=== PATIENT | female | born 1990 | race Caucasian/White ===

== ENCOUNTER 2017-04-05 13:52 | Emergency (ER) | payer OTHER ==
[2017-04-05 13:59] VITALS: BP 108/57; BMI 27.4
[2017-04-05] MEDS ORDERED: MOTRIN TAB 800 MG PO PRN (14:05)
[2017-04-05] MEDS ORDERED: MOTRIN TAB 800 MG PO ONE (14:07)
[2017-04-05 14:30] LABS: BILIRUBIN,URINE NEGATIVE (NEGATIVE); BLOOD/HEMOGLOBIN,URINE 5+ (NEGATIVE); GLUCOSE, URINE NEGATIVE (NEGATIVE); KETONES,URINE 1+ (NEGATIVE); LEUKOCYTE ESTERASE ,URINE 3+ (NEGATIVE); NITRITES,URINE POSITIVE (NEGATIVE); PROTEIN,URINE 3+ (NEGATIVE); UROBILINOGEN,URINE 2+ (NORMAL)
[2017-04-05 14:34] LABS: APPEARANCE,URINE CLOUDY (CLEAR); BACTERIA,URINE 3+ /HPF (NEGATIVE); COLOR,URINE YELLOW (YELLOW); RBC,URINE 20-25 /HPF (NEGATIVE); SQUAMOUS EPITHELIAL CELL,UR RARE /HPF (NEGATIVE)
[2017-04-05] MEDS ORDERED: ROCEPHIN 1 GM IV PREMIX 1 GM/50 ML IV.SOLN. IV ONE ×2 (16:22→16:42)
[2017-04-05] MEDS ORDERED: ZOFRAN INJ 4 MG VIAL IVP ONE (16:23)
--- NOTE | 2017-04-05 16:27 | DR.GENAD ---
HPI - PCP Primary Care Physician: BEKAH - Complaint/Symptoms Chief Complaint Doctors Comments: Patient is complaining of low back pain, headache, nausea, vomiting for the past 24 hours getting worst. States she has had several urinary tract infections in the past. States she is a patient of Dr. Godfrey. States she has been having back pain worst when she moves. She denies diarrhea, hematuria or melana. States she has been taking motrin without improvement. She denies any recent trauma. Chief Complaint:: PT C/O HAVING LOWER BACK PAIN THAT STARTED X 3 DAYS AGO. PT STATES SHE HAS A HISTORY OF FREQUENT UTI'S. PT STATES X2 DAYS AGO SHE STARTED WITH FEVER AND STARTED VOMITTING THAT NIGHT. PT STATES SHE HAS BEEN TAKING MOTRIN AND TYLENOL AROUND THE CLOCK FOR THE FEVER. LAS DOSE OF TYLENOL WAS AT 10 AM SHE IS IN NEED OF A DOSE OF MOTRIN NOW. - Nurses notes reviewed Nurses Notes Review: Yes - Source History Provided: Patient - Mode of Arrival Mode of Arrival: Ambulatory - Timing Onset of Chief Complaint: 04/02/17 Came on: Gradually - Duration Duration: Constant How lon Duration: Hours - Location Location: lower back and abdominal pain - Severity Severity: Severe - Modifying Factors Worsens:: nothing Improves:: nothing PMH - PMH Past Medical History: Yes Past Medical History Comment: ENDOMETRIOSIS, OVARIAN CYST, CHRONIC KIDNEY PROBLEMS Past Surgical History: Yes Surgical History: Appendectomy, Other - Family History History of Family Medical Conditions: Yes Family Medical History: Diabetes Mellitus - Social History Does any household member use tobacco: No Alcohol Use: None Do you use any recreational Drugs:: No Lives With: Family Lives Where: Home - infectious screening In the last 2 months have you had wt loss of >10#?: NO Have you had fever, night sweats or hemotysis?: No Have you traveled outside the country in the last 6 months?: No Isolation: Standard ROS - Review of Systems Constitutional: No Symptoms Reported, Fever, Weakness, Loss of Appetite Eyes: No Symptoms Reported ENTM: No Symptoms Reported, Nose Congestion Respiratoy: No Symptoms Reported Cardiovascular: No Symptoms Reported Gastrointestinal/Abdominal: No Symptoms Reported, Abdominal Pain, Nausea, Vomiting Genitourinary: No Symptoms Reported, Dysuria, Frequency, Pain Neurological: No Symptoms Reported Musculoskeletal: No Symptoms Reported, Back Pain Integumentary: No Symptoms Reported Hematologic/Lymphatic: No Symptoms Reported Endocrine: No Symptoms Reported Psychiatric: No Symptoms Reported. negative: See HPI, Anxiety, Depression, Hallucinations, Excessive crying, Suicidal, Other PE - Vital Signs Vitals: Temperature 99.7 F Pulse Rate 142 Respiratory Rate 20 Blood Pressure [Right Arm] 120/68 Blood Pressure 108/57 O2 Sat by Pulse Oximetry 95 - General Limitations: No Limitations General Appearance: Alert - Head Head Exam: Normal Inspection, Atraumatic, Normocephalic - Eyes Eye exam: Normal Appearance, PERRL. negative: EOMI, Scleral Icterus, Conjunctival Injection, Nystagmus, Miosis, Mydrasis, Periorbital Swelling, Periorbital Tenderness, Other - ENT ENT Exam: Normal Exam, Normal Oropharynx, Normal External Ear Exam, Mucous Membranes Moist, TM's Normal Bilaterally External Ear Exam: Normal External Inspection TM/Canal Exam: Bilateral Normal Nose Exam: Normal Nose Exam Mouth Exam: Normal Inspection Throat Exam: Normal Inspection - Neck Neck Exam: Normal Inspection, Full ROM, Trachea Midline - Chest Chest Inspection: Normal Inspection, Symmetric Chest Wall Rise - Respiratory Respiratory Exam: Normal Lung Sounds Bilat Respiratory Exam: Bilateral Clear to Auscultation - Cardiovascular Cardiovascular Exam: Regular Rate, Normal Rhythm, Normal Heart Sounds - Abdominal Exam Abdominal Exam: Normal Inspection, Normal Bowel Sounds, Soft, Tenderness Abdominal Tenderness: LUQ, Epigastrium, Suprapubic, Moderate - Extremities Extremities Exam: Normal Inspection, Full ROM, Normal Capillary Refill. negative: Tenderness, Edema, Joint Swelling, Calf Tenderness, Other - Back Back Exam: Normal Inspection, Full ROM, Tenderness, (L) CVA Tenderness - Neurologic Neurological Exam: Alert, Oriented X3, CN II-XII Intact, Normal Gait, Reflexes Normal - Psychiatric Psychiatric Exam: Normal Affect, Normal Mood - Skin Skin Exam: Warm, Dry, Intact, Normal Color Course - Reevaluation 1st: Improved - Education/Counseling Education/Counseling: Patient, Education Educated On: Treatment, Diagnosis, Needs for Follow Up ROR - Labs Reviewed Laboratory Results Reviewed?: Yes (all lab results reviewed and discussed with patient) Result Diagrams: 04/05/17 16:30 04/05/17 16:30 Laboratory: WBC 11.1 X10^3/uL (3.6-10.0) H 04/05/17 16:30 RBC 4.11 X10^6/uL (3.5-5.4) 04/05/17 16:30 Hgb 11.8 g/dL (12.0-16.0) L 04/05/17 16:30 Hct 35.0 % (36.0-47.0) L 04/05/17 16:30 MCV 85.3 fL (80.0-100.0) 04/05/17 16:30 MCH 28.6 pg (27.0-34.0) 04/05/17: MCHC 33.6 g/dL (33.0-35.0) 04/05/17 16:30 RDW 15.1 % (11.6-16.5) 04/05/17 16: Plt Count 171 X10^3/uL (150.0-450.0) 04/05/17: MPV 9.0 fL (7.4-11.0) 04/05/17: Neut % 81.6 % (42.0-75.0) H 04/05/17: Lymph % 8.0 % (21.0-51.0) L 04/05/17 16:30 [place] % 10.2 % (0.0-13.0) 04/05/17 16:30 Eos % 0.0 % (0.9-2.9) L 04/05/17 16: Baso % 0.2 % (0.2-1.0) 04/05/17 16:30 Neut # 9.1 x10^3/uL (2.2-4.8) H 04/05/17:30 Lymph # 0.9 X10^3/uL (1.3-2.9) L 04/05/17 16:30 [place] # 1.1 x10^3/uL (0.3-0.8) H 04/05/17 16:30 Eos # 0.0 x10^3/uL (0.0-0.2) 04/05/17:30 Baso # 0.0 X10^3/uL (0.0-0.1) 04/05/17 16: Absolute Nucleated RBC 0.0 /100WBC 04/05/17 16:30 Sodium 138 mmol/L (136-145) 04/05/17 16:30 Corrected Sodium 138 mmol/L (136-145) 04/05/17 16:30 Potassium 2.9 mmol/L (3.5-5.1) L* 04/05/17 16:30 Chloride 103 mmol/L (98-107) 04/05/17 16:30 Carbon Dioxide 26.9 mmol/L (21-32) 04/05/17 16:30 BUN 7 mg/dL (7-18) 04/05/17 16:30 Creatinine 0.76 mg/dL (0.55-1.02) 04/05/17 16:30 Est GFR (MDRD) Af Amer > 60 (>60) 04/05/17 16:30 Est GFR (MDRD) Non-Af > 60 (>60) 04/05/17 16:30 Glucose 116 mg/dL (65-99) H 04/05/17 16:30 Calcium 8.1 mg/dL (8.5-10.1) L 04/05/17 16:30 Corrected Calcium 9.2 mg/dL (8.5-10.1) 04/05/17 16:30 Total Bilirubin 0.30 mg/dL (0.2-1.0) 04/05/17 16:30 AST 14 Units/L (15-37) L 04/05/17 16:30 ALT 15 Units/L (12-78) 04/05/17 16:30 Alkaline Phosphatase 111 Units/L (46-116) 04/05/17 16:30 Total Protein 6.6 g/dL (6.4-8.2) 04/05/17 16:30 Albumin 2.6 g/dL (3.4-5.0) L 04/05/17 16:30 Globulin 4.0 g/dL (2.5-4.5) 04/05/17 16:30 Albumin/Globulin Ratio 0.7 Ratio (1.1-2.1) L 04/05/17 16:30 Specimen Type Clean catch urine 04/05/17 14:21 Urine Color Yellow (YELLOW) 04/05/17 14:21 Urine Appearance Cloudy (CLEAR) 04/05/17 14:21 Urine pH 6.0 (5.0 - 8.0) 04/05/17 14:21 Ur Specific [place] 1.015 (1.000-1.030) 04/05/17 14:21 Urine Protein 3+ (NEGATIVE) 04/05/17 14:21 Urine Glucose (UA) Negative (NEGATIVE) 04/05/17 14:21 Urine Ketones 1+ (NEGATIVE) 04/05/17 14:21 Urine Occult Blood 5+ (NEGATIVE) 04/05/17 14:21 Urine Nitrite Positive (NEGATIVE) 04/05/17 14:21 Urine Bilirubin Negative (NEGATIVE) 04/05/17 14:21 Urine Urobilinogen 2+ (NORMAL) 04/05/17 14:21 Ur Leukocyte Esterase 3+ (NEGATIVE) 04/05/17 14:21 Urine RBC 20-25 /HPF (NEGATIVE) 04/05/17 14:21 Urine WBC 20-25 /HPF (NEGATIVE) 04/05/17 14:21 Ur Squamous Epith Cells Rare /HPF (NEGATIVE) 04/05/17 14:21 Urine Bacteria 3+ /HPF (NEGATIVE) 04/05/17 14:21 Ur Culture Indicated? Yes/culture set up 04/05/17 14:21 Influenza Type A (PCR) Negative (NEGATIVE) 04/05/17 14:21 Influenza Type B (PCR) Negative (NEGATIVE) 04/05/17 14:21 S. pyogenes (TEM-PCR) Not detected (NOT DETECT) 04/05/17 14:21 - Diagnosis Discharge Problem: Urinary tract infection, acute, Hypokalemia, Hyperglycemia - Discharge Plan Disposition: HOME, SELF-CARE Condition: Stable Prescriptions: Levofloxacin [LEVAQUIN TAB 500 MG *] 500 mg PO Q24H #10 tab Ondansetron [Zofran Odt] 4 mg PO Q8H PRN #12 tab PRN Reason: Nausea/Vomiting - Follow ups/Referrals Follow ups/Referrals: GENTRY GODFREY [Primary Care Provider] - 3 days - Instructions Instructions: Urinary Tract Infection, Adult, Hypokalemia, Fever, Adult, Easy- to-Read
[2017-04-05] MEDS ORDERED: TORADOL 30 MG VIAL IVP STA (16:28)
[2017-04-05] MEDS ORDERED: NS 1000 ML 1,000 ML IV ONE (16:29)
[2017-04-05 16:41] LABS: BASOPHILS % (AUTO) 0.2 % (0.2-1.0); HEMOGLOBIN 11.8 g/dL (12.0-16.0); LYMPHOCYTES # (AUTO) 0.9 X10^3/uL (1.3-2.9); MEAN CORPUSCULAR HEMOGLOBIN 28.6 pg (27.0-34.0); MEAN CORPUSCULAR HGB CONC 33.6 g/dL (33.0-35.0); MEAN CORPUSCULAR VOLUME 85.3 fL (80.0-100.0); MONOCYTES # (AUTO) 1.1 x10^3/uL (0.3-0.8); MONOCYTES % (AUTO) 10.2 % (0.0-13.0); NEUTROPHILS # (AUTO) 9.1 x10^3/uL (2.2-4.8); NEUTROPHILS % (AUTO) 81.6 % (42.0-75.0); PLATELET COUNT 171 X10^3/uL (150.0-450.0); RED BLOOD COUNT 4.11 X10^6/uL (3.5-5.4); RED CELL DISTRIBUTION WIDTH 15.1 % (11.6-16.5); WHITE BLOOD COUNT 11.1 X10^3/uL (3.6-10.0)
[2017-04-05] MEDS ORDERED: NS 1000 ML 1,000 ML ONE (16:41)
[2017-04-05] MEDS ORDERED: ZOFRAN INJ 4 MG VIAL ONE ×2 (16:41→17:58)
[2017-04-05] MEDS ORDERED: TORADOL 30 MG VIAL ONE (16:41)
[2017-04-05 16:47] LABS: BLOOD UREA NITROGEN 7 mg/dL (7-18); CALCIUM 8.1 mg/dL (8.5-10.1); CARBON DIOXIDE 26.9 mmol/L (21-32); CHLORIDE 103 mmol/L (98-107); COR NA(FOR HYPERGLY) 138 mmol/L (136-145); CREATININE 0.76 mg/dL (0.55-1.02); SODIUM 138 mmol/L (136-145); eGFR BLACK RACES > 60 (>60); eGFR NON BLACK RACES > 60 (>60)
[2017-04-05 16:52] LABS: ALANINE AMINOTRANSFERASE 15 Units/L (12-78); ALBUMIN 2.6 g/dL (3.4-5.0); ALKALINE PHOSPHATASE 111 Units/L (46-116); ASPARTATE AMINO TRANSFERASE 14 Units/L (15-37); COR CA(FOR HYPOALB) 9.2 mg/dL (8.5-10.1); TOTAL PROTEIN 6.6 g/dL (6.4-8.2)
[2017-04-05] MEDS ORDERED: K-LYTE EFFERVESCENT ONE (17:28)
[2017-04-05] MEDS ORDERED: LEVAQUIN TAB 500 MG PO STA (17:30)
[2017-04-05] MEDS ORDERED: LEVAQUIN TAB 500 MG ONE (17:51)
[2017-04-05] MEDS ORDERED: K-LYTE EFFERVESCENT PO SCH (18:00)
== END 2017-04-05 18:15 | disposition home or self-care (01) ==
LOC: ER 14:15
DX: N39.0 Urinary tract infection, site not specified (principal); E87.6 Hypokalemia; R73.9 Hyperglycemia, unspecified; B96.29 Other Escherichia coli [E. coli] as the cause of diseases classified elsewhere
CPT/HCPCS: 36415; 80053; 81001; 85025; 87040; 87086; 87088; 87186; 87502; 87651; 96365; 96374; 96375; 99282; 99283; A4222; J0696; J1885; J2405